=== PATIENT | female | born 1985 | race Caucasian/White ===

== ENCOUNTER → 2020-07-30 16:25 | Outpatient (BNVA) | payer MEDICAID, SELFPAY | PROVIDERS: Visit Provider Family Medicine | DX: B37.0 Candidal stomatitis (principal); B37.81 Candidal esophagitis; J02.9 Acute pharyngitis, unspecified | CPT/HCPCS: 80053 ==

== ENCOUNTER 2025-01-04 15:44 | Emergency (ER) | payer OTHER, SELFPAY ==
[2025-01-04 15:45] VITALS: BP 134/64; PULSE 100; RESP 16; TEMP 36.6; O2SAT 92; BMI 45.7
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
[2025-01-04 16:35] LABS: Hematocrit 40.3 % (36-47); Hemoglobin 11.80 g/dL (11.27-16.99); Mean Corpuscular HGB Conc 29.3 g/dL (30-55); Mean Corpuscular Hemoglobin 25.3 pg (27-33); Mean Corpuscular Volume 86.5 fl (85-98); Nucleated Red Blood Cells % 0 %; Platelet Count 343 10^3/cmm (157-399); Red Blood Count 4.66 10^6/uL (3.85-5.65); White Blood Count 9.71 10^3/uL (3.29-11.43)
[2025-01-04] MEDS: iohexol 350 mg/mL 500 mL Btl (per mL) IV (16:45)
--- OUTSIDE RECORDS SUMMARY | 2025-01-04 16:47 | XMS_ITS | Encounter Summary ---
Author Organization [facility] Address [address] [place] [address] Care Team Providers Care Internet Marketing Assistant Name Role Phone Unavailable Primary Care Provider Unavailabl e Encounter Details Date Type Department Care Team (Latest Contact Info) Description 02/06/2004 Outpatient Historical [facility] Dermat[facility]- [facility] [place] [address] [place] [address] Nain Hannon MD NO ADDRESS ON FILE HAIR DISEASES NEC (Primary Dx) Social History Tobacco Use Types Packs/Day Years Used Date Smoking Tobacco: Never Assessed Comments Unknown Sex and Gender Information Value Date Recorded Sex Assigned at Not on file 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
--- OUTSIDE RECORDS SUMMARY | 2025-01-04 16:47 | XMS_ITS | Clinical Summary ---
Author Organization [employer] Address [address] Terry: Epic Prelude ADT [place] [address] Care Team Providers Care Education Faculty Member Name Role Phone Unavailable Primary Care Provider Unavailabl e Immunizations Immunization Administration Dates Next Due (ADACEL/BOOSTRIX)(10 YR UP) TDAP VACCINE, 0.5ML, IM 11/15/2008 (M-M-R II/PRIORIX)(12 MO UP) MEASLES, MUMPS AND RUBELLA VIRUS VACCINE, 0.5 ML IM/SUBCUT 11/30/1991 (TDVAX)(7 YRS UP) TETANUS AN D DIPHTHERIA TOXOIDS, ADSORBED (2 LF OF TETANUS TOXOID AND 2 LF OF DIPHTHERIA TOXOID), 0.5ML (PF), IM 12/23/2001 Dt Dtp Dtap Vaccine 11/30/1991 Hepatitis B Vaccine 04/30/1999,12/04/1998,1998 Social History Tobacco Use Types Packs/Day Years Used Date Smoking Tobacco: Never Assessed Comments Unknown Sex and Gender Information Value Date Recorded Sex Assigned at Not on file 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
--- OUTSIDE RECORDS SUMMARY | 2025-01-04 16:47 | XMS_ITS | Encounter Summary ---
Author Organization [facility] Address [address] [place] [address] Care Team Providers Care Information Coder Name Role Phone Unavailable Primary Care Provider Unavailabl e Encounter Details Date Type Department Care Team (Latest Contact Info) Description 02/11/2000 Outpatient Historical [facility] Dermatology- [facility] [place] [address] [place] [address] Dorian Menezes MD NO ADDRESS ON FILE Other acne (Primary Dx); Other specified congenital anomaly of skin; Striae atrophicae Social History Tobacco Use Types Packs/Day Years Used Date Smoking Tobacco: Never Assessed Comments Unknown Sex and Gender Information Value Date Recorded Sex Assigned at Not on file 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
[2025-01-04 16:57] LABS: Slide Review Slide Review Perform
[2025-01-04 17:24] VITALS: BP 137/100; PULSE 90; O2SAT 91
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
[2025-01-04 17:36] LABS: Alanine Aminotransferase 33 U/L (0-33); Albumin Level 3.6 g/dL (3.5-5.2); Alkaline Phosphatase 57 U/L (35-105); Blood Urea Nitrogen 8 mg/dL (6-20); Calcium 8.7 mg/dL (8.5-10.5); Carbon Dioxide 18 mmol/L (22-29); Chloride 103 mmol/L (98-107); Creatinine Clr Calc Pharmacy 179.8538; Globulin 3.6 g/dL (1.3-4.6); Glucose 104 mg/dL (65-115); Osmolality Calculated 287 mOsm/kg (285-295); Sodium 139 mmol/L (136-145); Total Protein 7.2 g/dL (6.6-8.7)
[2025-01-04 17:38] LABS: Anion Gap 22.0 (5-19); Aspartate Amino Transferase 38 U/L (0-32); Potassium 4.0 mmol/L (3.5-5.1)
[2025-01-04] MEDS: orphenadrine 30 mg/mL Inj 2 mL 60 MG IV (17:52)
[2025-01-04 17:57] VITALS: BP 136/102; PULSE 86; O2SAT 93
[2025-01-04 18:30] VITALS: PULSE 86; O2SAT 93
[2025-01-04 18:30] LABS: Lactic Sepsis W/Reflex 1.7 mmol/L (0.5-2.2)
[2025-01-04 19:00] VITALS: PULSE 81; O2SAT 94
[2025-01-04] MEDS: HYDROcodone-acetaminophen 10-325 mg Tablet 1 TAB PO (19:05)
[2025-01-04 19:16] VITALS: BP 157/98; PULSE 87; O2SAT 93
== END 2025-01-04 19:17 | disposition home or self-care (01) ==
PROVIDERS: Emergency Provider Physician Assistant
DX: S01.01XA Laceration without foreign body of scalp, initial encounter (principal); S80.02XA Contusion of left knee, initial encounter; R07.89 Other chest pain; S10.93XA Contusion of unspecified part of neck, initial encounter; V89.2XXA Person injured in unspecified motor-vehicle accident, traffic, initial encounter
CPT/HCPCS: 36415; 70450; 71260; 72125; 73140; 73562; 74177; 80053; 83605; 85025; 99284; J1885; J2360; J9999

== ENCOUNTER 2025-01-14 15:08 | Emergency (ER) | payer OTHER, SELFPAY ==
[2025-01-14 15:09] VITALS: BP 137/71; PULSE 101; RESP 16; TEMP 36.8; O2SAT 96; BMI 43.9
--- OUTSIDE RECORDS SUMMARY | 2025-01-14 15:13 | XMS_ITS | Clinical Summary ---
Author Organization [facility] Address [address] 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
--- OUTSIDE RECORDS SUMMARY | 2025-01-14 15:13 | XMS_ITS | Encounter Summary ---
Author Organization [facility] Address [address] [facility] [facility] [place] [address] Care Team Providers Care On Call Pharmacy Technician Name Role Phone Unavailable Primary Care Provider Unavailabl e Encounter Details Date Type Department Care Team (Latest Contact Info) Description 02/11/2000 Outpatient Historical [facility] Derm[facility]- [facility] [address] [place] [address] Dorian Menezes MD NO ADDRESS ON FILE Other acne (Primary Dx); Other specified congenital anomaly of skin; Striae atrophicae Social History Tobacco Use Types Packs/Day Years Used Date Smoking Tobacco: Never Assessed Comments Unknown Sex and Gender Information Value Date Recorded Sex Assigned at Not on file 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
--- OUTSIDE RECORDS SUMMARY | 2025-01-14 15:13 | XMS_ITS | Encounter Summary ---
Author Organization [facility] Address [address] [place] [place] [address] Care Team Providers Care Battery Test Engineer Name Role Phone Unavailable Primary Care Provider Unavailabl e Encounter Details Date Type Department Care Team (Latest Contact Info) Description 02/06/2004 Outpatient Historical [facility] Dermatology- [facility] [place] [address] [place] [address] Nain Hannon MD NO ADDRESS ON FILE HAIR DISEASES NEC (Primary Dx) Social History Tobacco Use Types Packs/Day Years Used Date Smoking Tobacco: Never Assessed Comments Unknown Sex and Gender Information Value Date Recorded Sex Assigned at Not on file 

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
[2025-01-14 15:59] VITALS: BP 139/79; PULSE 85; O2SAT 96
== END 2025-01-14 16:01 | disposition home or self-care (01) ==
PROVIDERS: Emergency Provider Physician Assistant
DX: Z48.02 Encounter for removal of sutures (principal); S89.91XA Unspecified injury of right lower leg, initial encounter; F17.210 Nicotine dependence, cigarettes, uncomplicated; X58.XXXA Exposure to other specified factors, initial encounter
CPT/HCPCS: 73562; 99283